=== PATIENT | female | born 1965 | race Caucasian/White ===

== ENCOUNTER 2022-10-16 07:32 | Outpatient (CLI) | payer OTHER, SELFPAY | END 2022-10-16 07:33 | disposition home or self-care (01) | PROVIDERS: PCP Family Medicine; Visit Provider Family Medicine | DX: M54.16 Radiculopathy, lumbar region (principal); M51.36 Other intervertebral disc degeneration, lumbar region | CPT/HCPCS: 64483; J1100; Q9966 ==

== ENCOUNTER 2022-11-20 07:31 | Outpatient (CLI) | payer OTHER, SELFPAY | END 2022-11-20 07:32 | disposition home or self-care (01) | LOC: RAD 07:32 → INJ CL 09:12 | PROVIDERS: PCP Family Medicine; Visit Provider Family Medicine | DX: M54.16 Radiculopathy, lumbar region (principal); M51.36 Other intervertebral disc degeneration, lumbar region | CPT/HCPCS: 64483; J1100; Q9966 ==

== ENCOUNTER 2024-08-28 06:54 | Outpatient (CLI) | payer BC, SELFPAY | END 2024-08-28 06:55 | disposition home or self-care (01) | LOC: INJ CL 06:56 | PROVIDERS: PCP Family Medicine; Visit Provider Family Medicine | DX: M54.16 Radiculopathy, lumbar region (principal); M51.369 Other intervertebral disc degeneration, lumbar region without mention of lumbar back pain or lower extremity pain | CPT/HCPCS: 62323; J0702; Q9966 ==

== ENCOUNTER 2025-01-05 14:29 | Outpatient (CLI) | payer BC, SELFPAY | END 2025-01-05 14:30 | disposition home or self-care (01) | LOC: INJ CL 14:29 | PROVIDERS: PCP Family Medicine; Visit Provider Family Medicine | DX: M17.12 Unilateral primary osteoarthritis, left knee (principal); M25.562 Pain in left knee | CPT/HCPCS: 64454 ==

== ENCOUNTER 2025-05-24 18:09 | Emergency (ER) | payer BC, SELFPAY ==
[2025-05-24] VITALS (9 sets, daily range): BP systolic 74–145; BP diastolic 45–91; PULSE 76–79; RESP 4–35; TEMP 36.6; O2SAT 95–98; BMI 34.3
--- OUTSIDE RECORDS SUMMARY | 2025-05-24 18:12 | XMS_ITS | Clinical Summary ---
Author Organization [facility] Address [address] [place] [id number] Care Team Providers Care Generator Man Name Role Phone Monica Naranjo MD Primary Care Provider Allergies No known active allergies Medications cholecalciferol (VITAMIN D) 2,000 unit capsule Take 1 capsule by mouth once daily. 90 capsule 3 08/14/20 10 Active Evening Maplewood Oil 500 mg capsule Take by mouth. 0 08/14/20 10 Active multivitamin (MVI) tablet Take 1 tablet by mouth once daily. 100 tablet 3 08/14/20 10 Active omega-3 fatty acids-vitamin E (FISH OIL) 1,000 mg Cap Take 2 capsules by mouth once daily. 180 capsule 3 08/14/20 10 Active estradioL (ESTRACE) 0.1 mg/g vaginal creamIndications :Vaginal atrophy Insert 0.5 g into the vagina at bedtime. Use 0.5 gram vaginally two nights per week (,Th) 42.5 g 3 06/08/20 20 Active diclofenac topical (VOLTAREN) 1 % gelIndications:P olyarthralgia Apply 2 g topically to affected area(s) 4 times daily. 1 Tube 2 08/23/20 20 Active Restasis 0.05 % ophthalmic emulsion Place 1 Drop into both eyes 2 times daily. 08/01/20 21 Active Blood-Glucose Meter (Accu-Chek Guide Glucose Meter)Indication s:New onset type 2 diabetes mellitus (HC) Dispense glucose meter, test strips and lancets covered by the patient insurance. Test 2 times per day. 1 Each 03/08/20 22 Active clobetasol 0.05% (TEMOVATE 0.05% OINTMENT) 0.05 % ointmentIndicati ons:Lichen sclerosus of female genitalia Apply topically to affected area(s) 2 times daily. 60 g 04/05/20 22 Active blood sugar diagnostic (Accu-Chek Guide test strips) stripIndications :New onset type 2 diabetes mellitus (HC) USE TO TEST TWICE DAILY 200 Each 3 06/05/20 23 Active lidocaine 4 % topical gelIndications:B RBPR (bright red blood per rectum),Rectal pain Apply topically to affected area(s). 120 g 11/20/19 24 Active lancetsIndicatio ns:New onset type 2 diabetes mellitus (HC) Test 2 times per day. 200 Each 3 06/15/20 24 Active CPAPIndications: TIARRA (obstructive sleep apnea) RESMED CPAP (E0601) machine for home use at pressure: 11cmw, Choice of mask (A7030 or A7034) w/full face cushion (A7031) x1/mo, nasal cushion (A7032) x2/mo, or nasal pillows (A7033) x 2/mo; Length of Need: 99 months; Frequency of use: Daily 1 Each 11 09/14/19 25 Active celecoxib 200 mg capsuleIndicatio ns:Bilateral foot pain,Osteoarthri tis of right ankle and foot,DJD (degenerative joint disease), ankle and foot, left TAKE 1 CAPSULE(200 MG) BY MOUTH TWICE DAILY WITH MEALS 60 Capsule 2 03/03/20 25 Active fluticasone (50 mcg per actuation) nasal solution (FLONASE)Indicat ions:Seasonal allergic rhinitis due to other allergic trigger Inhale 2 Sprays in both nostrils once daily. 48 g 3 03/04/20 25 Active tirzepatide (MOUNJARO) 15 mg/0.5 mL penIndications:T ype 2 diabetes mellitus without complication, without long-term current use of insulin (HC),Class 2 severe obesity with body mass index (BMI) of 35 to 39.9 with serious comorbidity (HC) Inject 15 mg subcutaneous once weekly. 6 mL 1 04/29/20 25 Active rosuvastatin (CRESTOR) 20 mg tabletIndication s:Type 2 diabetes mellitus without complication, without long-term current use of insulin (HC) Take 1 Tablet (20 mg) by mouth at bedtime. 90 Tablet 2 04/29/20 25 Active montelukast (SINGULAIR) 10 mg tabletIndication s:Seasonal allergic rhinitis due to other allergic trigger Take 1 Tablet (10 mg) by mouth at bedtime. 90 Tablet 1 04/29/20 25 Active metFORMIN (GLUCOPHAGE XR) 500 mg Extended-Release tabletIndication s:Type 2 diabetes mellitus without complication, without long-term current use of insulin (HC) Take 1 Tablet (500 mg) by mouth once daily with evening meal. 90 Tablet 2 04/29/20 25 Active gabapentin (NEURONTIN) 300 mg capsuleIndicatio ns:Hot flashes due to menopause TAKE 1 CAPSULE BY MOUTH EVERY MORNING AND 2 CAPSULES BY MOUTH AT BEDTIME 270 Capsule 3 04/29/20 25 Active fluticasone propion-salmeter oL (Wixela Inhub) 250-50 mcg/Dose diskus inhalerIndicatio ns:Mild intermittent asthma without complication (HC) Inhale 1 Puff by mouth two times daily. 180 Each 2 04/29/20 25 Active cyanocobalamin (Vitamin B-12) 1,000 mcg tabletIndication s:Type 2 diabetes mellitus without complication, without long-term current use of insulin (HC) Take 1 Tablet (1,000 mcg) by mouth once daily. 90 Tablet 3 04/29/20 25 Active aspirin enteric coated 81 mg tabletIndication s:Type 2 diabetes mellitus without complication, without long-term current use of insulin (HC) Take 1 Tablet (81 mg) by mouth once daily with a meal. 90 Tablet 2 04/29/20 25 Active albuterol HFA (PRO-AIR; VENTOLIN; PROVENTIL) 90 mcg/actuation inhalerIndicatio ns:Wheezing Inhale 1-2 Puffs by mouth every 4 hours if needed for Wheezing. 2 Each 3 04/29/20 25 Active albuterol HFA (PRO-AIR; VENTOLIN; PROVENTIL) 90 mcg/actuation inhalerIndicatio ns:Wheezing Inhale 1-2 Puffs by mouth every 4 hours if needed for Wheezing. 2 Each 3 03/07/20 23 025 Discontin ued(Reord er (E-cancel not sent)) metFORMIN (GLUCOPHAGE XR) 500 mg Extended-Release tabletIndication s:Type 2 diabetes mellitus without complication, without long-term current use of insulin (HC) Take 1 Tablet (500 mg) by mouth once daily with evening meal. 90 Tablet 2 10/28/19 25 025 Discontin ued(Reord er (E-cancel not sent)) rosuvastatin (CRESTOR) 20 mg tabletIndication s:Type 2 diabetes mellitus without complication, without long-term current use of insulin (HC) Take 1 Tablet (20 mg) by mouth at bedtime. 90 Tablet 2 10/28/19 25 025 Discontin ued(Reord er (E-cancel not sent)) montelukast (SINGULAIR) 10 mg tabletIndication s:Seasonal allergic rhinitis due to other allergic trigger Take 1 Tablet (10 mg) by mouth at bedtime. 90 Tablet 1 10/28/19 25 025 Discontin ued(Reord er (E-cancel not sent)) fluticasone propion-salmeter oL (Wixela Inhub) 250-50 mcg/Dose diskus inhalerIndicatio ns:Mild intermittent asthma without complication (HC) Inhale 1 Puff by mouth two times daily. 180 Each 2 10/28/19 25 025 Discontin ued(Reord er (E-cancel not sent)) aspirin (ECOTRIN) 81 mg enteric coated tabletIndication s:Type 2 diabetes mellitus without complication, without long-term current use of insulin (HC) Take 1 Tablet (81 mg) by mouth once daily with a meal. 90 Tablet 2 10/28/19 25 025 Discontin ued(Reord er (E-cancel not sent)) gabapentin (NEURONTIN) 300 mg capsuleIndicatio ns:Hot flashes due to menopause TAKE 1 CAPSULE BY MOUTH EVERY MORNING AND 2 CAPSULES BY MOUTH AT BEDTIME 270 Capsule 3 10/28/19 25 025 Discontin ued(Reord er (E-cancel not sent)) cyanocobalamin (Vitamin B-12) 1,000 mcg tabletIndication s:Type 2 diabetes mellitus without complication, without long-term current use of insulin (HC) Take 1 Tablet (1,000 mcg) by mouth once daily. 90 Tablet 3 10/28/19 25 025 Discontin ued(Reord er (E-cancel not sent)) tirzepatide (MOUNJARO) 15 mg/0.5 mL penIndications:T ype 2 diabetes mellitus without complication, without long-term current use of insulin (HC),Class 2 severe obesity with body mass index (BMI) of 35 to 39.9 with serious comorbidity (HC) Inject 15 mg subcutaneous once weekly. 6 mL 1 10/28/19 25 025 Discontin ued(Reord er (E-cancel not sent)) Active Problems Problem Noted Date Diagnosed Date Class 2 severe obesity with body mass index (BMI) of 35 to 39.9 with serious comorbidity 10/28/2024 Type 2 diabetes mellitus wit hout complication, without long-term current use of insulin 10/28/2024 Hot flashes due to menopause 10/28/2024 Acute pain of left knee 07/29/2024 Overview (09/23/2024): 2019 Left knee meniscal arthroscopic Surgery. July 2024: Cortisone injection to left knee, no lasting benefit. Lichen sclerosus of female genitalia 07/11/2020 Arthritis of left hip 08/01/2018 Overview (08/01/2018): July 2018: Left hip cortisone injection by ultrasound guidance. Chronic midline low back pain with left-sided sc iatica 06/26/2018 Overview (09/23/2024): ~ June 2018: L4-L5 Left IL epidural steroid injection by Dr. Tovar. ~ Jul 2018: Left hip intraarticular hip steroid injection. ~ August 2018: Left S1 TF epidural steroid injection by Dr. Tovar. ~ August 2024: L4-L5 epidural steroid injection by Dr. Tovar, no lasting benefit. Adenomatous colon polyp 05/06/2018 Overview (02/20/2024): Colonoscopy 04/2018 polyp, repeat in 5 years Colonoscopy 08/2020 hyperplastic colon polyp, repeat in 5 years Colonoscopy 02/2024 hemorrhoids, repeat in 5 years BEACH (dyspnea on exertion) 04/05/2017 Obesity 04/05/2017 TIARRA (obstructive sleep apnea) 02/18/2017 Mild intermittent asthma 08/14/2010 Vitamin D deficiency 08/14/2010 Unifocal PVCs 08/17/2008 Resolved Problems Problem Noted Date Diagnosed Date Resolved Date Arrhythmia 08/14/2010 10/01/2018 Sleep apnea 08/17/2008 10/01/2018 Unspecified sinusitis (chronic) 10/10/2007 01/01/2011 Overview (10/10/2007): Chronic Encounters Date Type Department Care Team Description 05/21/2025 8:00 AM CDT Ancillary Procedure [facility] [address] [facility] [address] Arrived 05/21/2025 7:15 AM CDT Ancillary Procedure [facility] [address] [facility] [place] [address] Arrived 05/21/2025 Travel 05/04/2025 Orders Only [address] [address] Monica Naranjo MD 1 scan: (1-Ord) NFLD-EKG-04/29/25 04/30/2025 8:00 AM CDT Ancillary Procedure [address] [address] 04/29/2025 8:20 AM CDT Office Visit [address] [address] Monica Naranjo MD Diabetes 04/29/2025 Travel 03/03/[address] [address] Monica Naranjo MD Refill Request; FLUTICASONE 03/03/[address] [address] Jonathan Clark, DPM Refill Request (Celecoxib) from Last 3 Months Immunizations Immunization Administration Dates Next Due AMB Influenza, IIV3 (Age >=3 years)(Flu Clinic Only) 08/18/2008 COVID-19 VACCINE SPIKEVAX (M ODERNA 50MCG/0.5ML) 12YO+ PFS 10/28/2024,09/25/2023 COVID-19 vaccine (Pfizer-Bio NTech 30mcg/0.3mL) 12YO+ BIVALENT PF, MDV 06/07/2022 Hepatitis B (Adult) 09/25/2023,06/07/2022,2021 INFLUENZA, IIV3 PF (AGE >= 6 MO) 05/21/2024 Influenza A (H1N1), Inactiva karlene (Age >=3 Years) 07/22/2009 Influenza Virus, Unspecified 08/18/2008, 07/19/2006,07/26/2005,06/16,08/18/2003 Influenza, IIV3 (Age >=3 years) 08/18/20 08,07/19/2006,07/26/2005,06/16,08/18/2003 Influenza, IIV4 09/25/2023,,06/16/2021,06/08,08/28/2018 Pneumococcal Conj 20-valent (Prevnar 20) 03/08/2022 Tdap 10/08/2018 Zoster (Shingrix-RZV, recombinant) 06/07/2022,05/03/2022 Family History Medical History Relation Name Comments Asthma Brother 1 Asthma Brother 2 Heart Disease Brother 3 atrial fibrill ation at age 48 Alcohol/Drug Father recovering alco holic Cancer Father melanoma Heart block Father 2 stents placed Psychiatric illness Father depressi on Cancer-breast Maternal Aunt Osteoporosis Maternal Grandmother Cancer-breast Mother Cancer-ovarian Mother Heart Disease Mother atrial fibrill ation Skin cancer Mother Uterine cancer Mother Cancer-colon No Family History Cancer-prostate No Family History Relation Name Status Comments Brother 1 Brother 2 Brother 3 Father Maternal Aunt Maternal Grandmother Mother Social History Tobacco Use Types Packs/Day Years Used Date Smoking Tobacco: Never Smokeless Tobacco: Never Tobacco Cessation:Counseling Given: Yes Alcohol Use Standard Drinks/Week Comments Yes 0 (1 standard drink = 0.6 oz pur e alcohol) Occasional PHQ-2 Answer Date Recorded PHQ-2 TOTAL SCORE 0 03/08/2022 Social Connections Answer Date Recorded Do you often feel lonely or isolated from those around you? 0 02/19/2025 Financial Resource Strain Answer Date R ecorded Difficulty of Paying Living Expenses 3 02/19/2025 Difficulty of Paying Living Expenses Not on file 02/19/2025 Food Insecurity Answer Date Recorded Do you worry your food will run out before you are able to buy more? 1 02/19/2025 Transportation Needs Answer Date Record ed Does lack of transportation keep you from medica l appointments? 1 02/19/2025 Does lack of transportation keep you from work, meetings or getting things that you need? 1 02/19/2025 Housing Stability Answer Date Recorded What is your housing situation today? 1 02/19/2025 Utilities Answer Date Recorded Do you have trouble paying f or utilities (for example, heat, electricity, water, phone)? 1 02/19/2025 Comments No Sex and Gender Information Value Date Recorded Sex Assigned at Not on file Legal Sex Female 5:51 AM M[employer]TER SOUS[employer]ES Gender Identity Not on file Sexual Orientation Not on file Occupation Industry Job Start Date Job End Date Not on file Not on file Not on file Not on file Obstetrics History Para Term AB IAB SAB Ectopic Multiple Livin g Live Births 4 4 4 0 0 0 0 0 0 4 4 Date Outcome GA Total Labor Labor/2nd/3rd Weight Sex Type Anes PTL Michelle A1 A5 Name Clin Term 3.6 kg (7 lb 15 oz) Vag Livin g Comments:No issues Term 3.15 kg (6 lb 15 oz) C-Sect ion Livin g Comments:Placenta prev ia. Term 4.34 kg (9 lb 9 oz) F Induce d Livin g Comments:No issues Term 2.89 kg (6 lb 6 oz) C-Sect ion Livin g Comments:No issues Last Filed Vital Signs Vital Sign Reading Time Taken Comments Blood Pressure 114/73 04/29/2025 8:28 AM CDT Pulse 73 04/29/2025 8:28 AM CDT Temperature 36.8 C (98.2 F) 02/19/2025 11:45 AM CDT Respiratory Rate 14 02/20/2024 10:40 AM CDT Oxygen Saturation 96% 04/29/2025 8:28 AM CDT Inhaled Oxygen Concentration - - Weight 98.4 kg (217 lb) 04/29/2025 8:28 AM CDT Height 161.1 cm (5' 3.43) 09/11/2024 8:00 AM CS T Body Mass Index 37.92 09/11/2024 8:00 AM MOUNTER SOUSAPHONES Plan of Treatment Upcoming Encounters Date Type Department Care Team (Late st Contact Info) Description 05/27/2025 8:30 AM CDT Ancillary Procedure [facility] [address] [place] [address] 06/03/2025 7:30 AM CDT Office Visit [facility] [address] [place] [address] Monica Naranjo MD [address] [place] [address] 11/02/2025 7:30 AM MOUNTER SOUSAPHONES Office Visit [facility] [address] [place] [address] Monica Naranjo MD [address] [place] [address] Health Maintenance Due Date Last Done Comments HIV for age 15-65 1979 Depression screening for age 12+ 03/09/2023 03/09/2022, 03/08/2022, 03/08/2022, Additional history exists RSV vaccine for adults or (1 - Risk 60-74 years 1-dose series) 2024 Influenza Vaccine (#1) 2025 4, 09/25/2023, 06/07/2022, Additional history exists Pap test for age 21-65 06/08/2025 0, 06/08/2020, 02/18/2017, Additional history exists BMI (ht and wt on same day) for age 18+ 09/11/2025 09/11/2024, 09/25/2023, 2022, Additional history exists Mammogram for age 45-75 05/21/2026 05/21/20 25, 04/22/2024, 03/19/2023, Additional history exists Tetanus booster 10/08/2028 10/08/2018 Colonoscopy through age 75 02/19/202902/19, 02/20/2024, 02/20/2024, Additional history exists Lipids for age 45-75 04/29/2030 04/29/2025, 07/22/2024, 09/25/2023, Additional history exists Hepatitis C screening for ag e 18-79 Completed 03/31/2018 Pneumococcal series for age 50+ Completed 2 Zoster (shingles) series for age 50+ Completed 06/07/2022, 03/08/2022 Hepatitis B series for 19+ Completed 09/25, 06/07/2022, 04/05/2022 COVID-19 vaccine series Completed 10/28/19, 09/25/2023, 06/07/2022, Additional history exists Procedures Procedure Name Priority Date/Time Associated Diagnosis Comments XR MAMMO CHAPARRITA BILAT SCREEN Routine 05/21/2025 8:12 AM CDT Visit for screening mammogram MR SHOULDER LEFT WO Routine 05/21/2025 7 :50 AM CDT Chronic left shoulder pain EKG 12 LEAD Routine 05/04/2025 8:39 AM CDT BEACH (dyspnea on exertion) Diaphoresis IN READING EKG - NO CHARGE, COMP ONLY Routine 05/04/2025 8:38 AM CDT BEACH (dyspnea on exertion) Diaphoresis XR SHOULDER 3 VIEWS LEFT Routine 04/30/2025 7:56 AM CDT Chronic left shoulder pain LIPID PANEL W REFLEX MEASURED LDL Routine 04/29/2025 8:21 AM CDT Type 2 diabetes mellitus without complication, without long-term current use of insulin (HC) COMP METABOLIC PANEL Routine 04/29/2025 8:21 AM CDT Type 2 diabetes mellitus without complication, without long-term current use of insulin (HC) HEMOGLOBIN A1C MONITORING (POCT) Routine 04/29/2025 8:21 AM CDT Type 2 diabetes mellitus without complication, without long-term current use of insulin (HC) COLONOSCOPY DIAGNOSTIC Routine 02/20/2024 9:07 AM CDT Hematochezia LOSS PREVENTION LEADER THIN PREP PAP SCREEN IMAGED Routine 06/08/2020 2:30 PM CDT Screening for malignant neoplasm of cervix ANTI HCV Routine 03/31/2018 2:54 PM CDT Need for hepatitis C screening test from Last 3 Months or Most Recently Relevant to Health Maintenance Results * XR MAMMO CHAPARRITA BILAT SCREEN (05/21/2025 8:12 AM CDT) Anatomical Region Laterality Modality BREASTS, Breast Left, Breast Right Bilateral Mammography Impressions 05/22/2025 5:09 AM CDT There is no radiographic evidence for malignancy. Recommend annual mammograms. MAMMOGRAM ASSESSMENT: ACR 1 Negative PATIENTS: You will also receive a letter with your examination results in an easy to read format. If you have questions about your results, please contact your referring provider. Narrative 05/22/2025 5:09 AM CDT For Patients: As a result of the Century Cures Act, medical imaging exams and procedure reports are released immediately into your electronic medical record. You may view this report before your referring provider. If you have questions, please contact your health care provider. XR MAMMO CHAPARRITA BILAT SCREEN [[id number]] CLINICAL HISTORY: This is an asymptomatic 59 y.o. patient. INDICATION FOR EXAM: Mammogram Screening. TECHNIQUE: CC and MLO views were obtained. This study was evaluated with the assistance of Computer-Aided Detection. Breast Tomosynthesis was used in interpretation. COMPARISON FILM: Yes 04/22/24 [employer] 03/19/23 [employer] FINDINGS: There are scattered areas of fibroglandular density. There are no dominant masses, suspicious micro calcifications or areas of architectural distortion. us Monica Naranjo MD MAMMO Final Resul t * MR SHOULDER LEFT WO (05/21/2025 7:50 AM CDT) Anatomical Region Laterality Modality SHOULDER L Magnetic Resonan ce 05/21/2025 2:04 PM CDT Impressions 05/21/2025 2:04 PM CDT 1. Prominent biceps tenosynovitis. 2. Associated small effusion with synovitis glenohumeral joint. Degenerative chondromalacia and mild secondary degenerative changes. 3. Upper normal width of the AC joint may be remote grade 1 separation. 4. Tendinosis without significant tearing rotator cuff tendons. Dictated by Brad Lutz MD @ 05/21/2025 2:04:46 PM (Electronically Signed) Narrative 05/21/2025 2:04 PM CDT For Patients: As a result of the Century Cures Act, medical imaging exams and procedure reports are released immediately into your electronic medical record. You may view this report before your referring provider. If you have questions, please contact your health care provider. EXAM: MRI OF THE LEFT SHOULDER, WITHOUT CONTRAST CLINICAL INDICATION: Chronic shoulder pain. PRIOR SURGERY: None reported. COMPARISON PLAIN FILMS: 30 April 2025. COMPARISON CROSS-SECTIONAL IMAGING STUDIES: None available at time of interpretation. TECHNICAL: Axial, sagittal oblique and coronal oblique T1, PD, PD FS and T2-weighted images. FINDINGS: GLENOHUMERAL JOINT: Effusion/Cyst: Small effusion. Some synovitis axillary recess. No erosion. No paralabral or periarticular cyst or ganglion. Humeral Head Articular Cartilage: Diffuse high-grade 2 thinning. Small inferior osteophytes. Glenoid Articular Cartilage: Diffuse high-grade 2 thinning. Small marginal osteophytes. Loose Bodies: No appreciable loose bodies. Capsule: No convincing evidence of adhesive capsulitis or capsular injury. OSSEOUS STRUCTURES: No fracture, marrow edema or marrow replacement process. CORACOACROMIAL ARCH: Acromial Morphology: Type 2 acromial morphology. No abnormal lateral or anterior downward sloping of the acromion. No os acromiale. No significant subacromial spur. Lateral acromial thickness is 6 mm. Acromiohumeral Interval: The acromiohumeral interval is adequately patent. At its narrowest, the interval measures 7 mm. No abnormal thickening of the coracoacromial ligament. Coracohumeral Interval: The coracohumeral interval is normal. At its narrowest, the coracohumeral interval measures greater than 10 mm. Coracoid index is less than 10 mm. ACROMIOCLAVICULAR JOINT REGION: AC Joint: Upper normal width with trace effusion and edematous capsule. Ligaments: The coracoclavicular ligaments are intact. BURSAE: Subacromial-Subdeltoid: Thin line of edema and scant fluid perhaps with some synovitis under the joint and acromion. Subcoracoid: No abnormal bursal edema, thickening or bursal fluid. ROTATOR CUFF TENDONS AND MUSCLES AND DELTOID: Supraspinatus: Heterogeneous intermediate signal and expansion distal tendon. Small interstitial tear or tiny bursal tear mid foot plate. No high-grade partial or full-thickness tear. No atrophy or edema in the muscle. Infraspinatus: Patchy intermediate signal tendinosis with mild expansion distal tendon. Intact foot plate. No atrophy or edema in the muscle. Teres Minor: No tendinosis, tendon tearing, muscle atrophy or muscle edema. Subscapularis: Hazy and patchy tendinosis without significant tearing. No atrophy or edema in the muscle. Deltoid: No muscle atrophy or edema. BICEPS TENDON, LONG HEAD: Extensive fluid and synovitis in the tendon sheath which is moderately distended. Tendon has normal caliber and signal. No subluxation. The biceps vineet mechanism is intact. The biceps anchor appears grossly intact. GLENOID LABRUM: Within the limitations of non-arthrographic technique, the superior labrum and biceps-labral complex are intact. The anteroinferior labrum is intact without Bankart or Bankart-variant labral tear. The remainder of the labrum is similarly intact. OTHER FINDINGS: There is no abnormality within the suprascapular or spinoglenoid notches nor within the quadrilateral space. No axillary adenopathy or mass. Procedure Note Brad Lutz MD - 05/21/2025 For Patients: As a result of the 21st Century Cures Act, medical imagingexams and procedure reports are released immediately into your electronicmedical record. You may view this report before your referring provider.If you have questions, please contact your health care provider. EXAM: MRI OF THE LEFT SHOULDER, WITHOUT CONTRAST CLINICAL INDICATION: Chronic shoulder pain. PRIOR SURGERY: None reported. COMPARISON PLAIN FILMS: 30 April 2025. COMPARISON CROSS-SECTIONAL IMAGING STUDIES: None available at time of interpretation. TECHNICAL: Axial, sagittal oblique and coronal oblique T1, PD, PD FS and T2-weightedimages. FINDINGS: GLENOHUMERAL JOINT: Effusion/Cyst: Small effusion. Some synovitis axillary recess. No erosion.No paralabral or periarticular cyst or ganglion. Humeral Head Articular Cartilage: Diffuse high-grade 2 thinning. Smallinferior osteophytes. Glenoid Articular Cartilage: Diffuse high-grade 2 thinning. Small marginalosteophytes. Loose Bodies: No appreciable loose bodies. Capsule: No convincing evidence of adhesive capsulitis or capsular injury. OSSEOUS STRUCTURES: No fracture, marrow edema or marrow replacement process. CORACOACROMIAL ARCH: Acromial Morphology: Type 2 acromial morphology. No abnormal lateral oranterior downward sloping of the acromion. No os acromiale. Nosignificant subacromial spur. Lateral acromial thickness is 6 mm. Acromiohumeral Interval: The acromiohumeral interval is adequately patent.At its narrowest, the interval measures 7 mm. No abnormal thickening ofthe coracoacromial ligament. Coracohumeral Interval: The coracohumeral interval is normal. At itsnarrowest, the coracohumeral interval measures greater than 10 mm.Coracoid index is less than 10 mm. ACROMIOCLAVICULAR JOINT REGION: AC Joint: Upper normal width with trace effusion and edematous capsule. Ligaments: The coracoclavicular ligaments are intact. BURSAE: Subacromial-Subdeltoid: Thin line of edema and scant fluid perhaps withsome synovitis under the joint and acromion. Subcoracoid: No abnormal bursal edema, thickening or bursal fluid. ROTATOR CUFF TENDONS AND MUSCLES AND DELTOID: Supraspinatus: Heterogeneous intermediate signal and expansion distaltendon. Small interstitial tear or tiny bursal tear mid foot plate. Nohigh-grade partial or full-thickness tear. No atrophy or edema in themuscle. Infraspinatus: Patchy intermediate signal tendinosis with mild expansiondistal tendon. Intact foot plate. No atrophy or edema in the muscle. Teres Minor: No tendinosis, tendon tearing, muscle atrophy or muscleedema. Subscapularis: Hazy and patchy tendinosis without significant tearing. Noatrophy or edema in the muscle. Deltoid: No muscle atrophy or edema. BICEPS TENDON, LONG HEAD: Extensive fluid and synovitis in the tendon sheath which is moderatelydistended. Tendon has normal caliber and signal. No subluxation. Thebiceps vineet mechanism is intact. The biceps anchor appears grosslyintact. GLENOID LABRUM: Within the limitations of non-arthrographic technique, the superior labrumand biceps-labral complex are intact. The anteroinferior labrum is intactwithout Bankart or Bankart-variant labral tear. The remainder of thelabrum is similarly intact. OTHER FINDINGS: There is no abnormality within the suprascapular or spinoglenoid notchesnor within the quadrilateral space. No axillary adenopathy or mass. IMPRESSION: 1. Prominent biceps tenosynovitis. 2. Associated small effusion with synovitis glenohumeral joint.Degenerative chondromalacia and mild secondary degenerative changes. 3. Upper normal width of the AC joint may be remote grade 1 separation. 4. Tendinosis without significant tearing rotator cuff tendons. Dictated by Brad Lutz MD @ 05/21/2025 2:04:46 PM (Electronically Signed) Monica Naranjo MD MR Final Resul t * EKG 12 LEAD (05/04/2025 8:39 AM CDT) Monica Naranjo MD EKG ORD Final Resul t * IN READING EKG - NO CHARGE, COMP ONLY (05/04/2025 8:38 AM CDT) Moncia Naranjo MD PB - PROVIDER READINGS Trista l Result * XR SHOULDER 3 VIEWS LEFT (04/30/2025 7:56 AM CDT) Anatomical Region Laterality Modality SHOULDERS, SHOULDER L Computed R adiography 05/02/2025 7:30 AM CDT Impressions 05/02/2025 7:30 AM CDT Mild glenohumeral joint osteoarthritis Dictated by Levi Arredondo MD @ 05/02/2025 7:30:13 AM (Electronically Signed) Narrative 05/02/2025 7:30 AM CDT For Patients: As a result of the Cures Act, medical imaging exams and procedure reports are released immediately into your electronic medical record. You may view this report before your referring provider. If you have questions, please contact your health care provider. INDICATION: Chronic left shoulder pain TECHNIQUE: Three views of the left shoulder COMPARISON: None FINDINGS: Mild glenohumeral joint osteoarthritis. AC joint unremarkable. No erosive change or abnormal soft tissue calcification. Procedure Note Levi Arredondo MD - 05/02/2025 For Patients: As a result of the Cures Act, medical imagingexams and procedure reports are released immediately into your electronicmedical record. You may view this report before your referring provider.If you have questions, please contact your health care provider. INDICATION: Chronic left shoulder pain TECHNIQUE: Three views of the left shoulder COMPARISON: None FINDINGS: Mild glenohumeral joint osteoarthritis. AC joint unremarkable. No erosivechange or abnormal soft tissue calcification. IMPRESSION: Mild glenohumeral joint osteoarthritis Dictated by Levi Arredondo MD @ 05/02/2025 7:30:13 AM (Electronically Signed) us Monica Naranjo MD GENERAL IMAGING Final Resul t * LIPID PANEL W REFLEX MEASURED LDL (04/29/2025 8:21 AM CDT) CHOLESTEROL, TOTAL 105 <200 mg/dL 04/30/2025 4:09 AM CDT [facility] TRIGLYCERIDES 122 <150 mg/dL 04/30/2025 4:09 AM CDT [facility] HDL CHOLESTEROL 56 > OR = 50 mg/dL 04/30/2025 4:09 AM CDT [facility] NON HDL CHOLESTEROL 49 <130 mg/dL (calc) 04/30/2025 4:09 AM CDT [facility] Comment: For patients with diabetes plus 1 major ASCVD risk factor, treating to a non-HDL-C goal of <100 mg/dL (LDL-C of <70 mg/dL) is considered a therapeutic option. CHOL/HDLC RATIO 1.9 <5.0 (calc) 04/30/2025 4:09 AM CDT [facility] LDL-CHOLESTEROL 29 mg/dL (calc) 04/30/2025 4:09 AM CDT [facility] Comment: Reference range: <100 Desirable range <100 mg/dL for primary prevention; <70 mg/dL for patients with CHD or diabetic patients with > or = 2 CHD risk factors. LDL-C is now calculated using the Jame calculation, which is a validated novel method providing better accuracy than the Friedewald equation in the estimation of LDL-C. Nahum ALMENDAREZ et al. GILDA. 2013;310(19): 9547-4687 (http://education.Vuzit/faq/IBC960) Blood BLOOD SPECIMEN / Unknown [facility] / Unknown 04/29/2025 8:21 AM CDT 04/29/2025 8:21 AM CDT Monica Naranjo MD CHEMISTRY Final Resul t Performing Organization Address [facility] de Phone Number [facility] [address] [address], [place] [phone] * POCT Hemoglobin A1C Monitoring (04/29/2025 8:21 AM CDT) [facility] POC HEMOGLOBIN A1C 5.3 <6.0 % OF TOTAL HGB 04/29/2025 9:06 AM CDT [facility] Comment: Any point of care results exhibiting inconsistency with the patient's clinical status should be repeated using a different testing method. Blood BLOOD SPECIMEN / Unknown [facility] / Unknown 04/29/2025 8:21 AM CDT 04/29/2025 8:21 AM CDT Monica Naranjo MD CHEMISTRY Final Resul t Performing Organization Address [facility] Co de Phone Number [facility] [address] [address], [place] [phone] [facility] [address] [place] [address], [place] [phone] * COMP METABOLIC PANEL (04/29/2025 8:21 AM CDT) SODIUM 141 135 - 146 mmol/L 04/30/2025 4:09 AM CDT [facility] POTASSIUM 4.5 3.5 - 5.3 mmol/L 04/30/2025 4:09 AM CDT [facility] CHLORIDE 107 98 - 110 mmol/L 04/30/2025 4:09 AM CDT [facility] CARBON DIOXIDE 25 20 - 32 mmol/L 04/30/2025 4:09 AM CDT [facility] GLUCOSE 93 65 - 99 mg/dL 04/30/2025 4:09 AM CDT [facility] Comment: Fasting reference interval CALCIUM 9.1 8.6 - 10.4 mg/dL 04/30/2025 4:09 AM CDT [facility] CREATININE 0.70 0.50 - 1.05 mg/dL 04/30/2025 4:09 AM CDT [facility] BUN/CREATININE RATIO SEE NOTE: (calc) 04/30/2025 4:09 AM CDT [facility] Comment: Not Reported: BUN and Creatinine are within reference range. EGFR 99 > OR = 60 mL/min/1. 73m2 04/30/2025 4:09 AM CDT [facility] ALBUMIN 4.2 3.6 - 5.1 g/dL 04/30/2025 4:09 AM CDT [facility] PROTEIN, TOTAL 6.6 6.1 - 8.1 g/dL 04/30/2025 4:09 AM CDT [facility] BILIRUBIN, TOTAL 0.4 0.2 - 1.2 mg/dL 04/30/2025 4:09 AM CDT [facility] ALKALINE PHOSPHATASE 37 37 - 153 U/L 04/30/2025 4:09 AM CDT [facility] ALT 28 6 - 29 U/L 04/30/2025 4:09 AM CDT [facility] AST 30 10 - 35 U/L 04/30/2025 4:09 AM CDT [facility] UREA NITROGEN (BUN) 13 7 - 25 mg/dL 04/30/2025 4:09 AM CDT [facility] GLOBULIN 2.4 1.9 - 3.7 g/dL (calc) 04/30/2025 4:09 AM CDT [facility] ALBUMIN/GLOBULI N RATIO 1.8 1.0 - 2.5 (calc) 04/30/2025 4:09 AM CDT [facility] Blood BLOOD SPECIMEN / Unknown [facility] / Unknown 04/29/2025 8:21 AM CDT 04/29/2025 8:21 AM CDT us Monica Naranjo MD CHEMISTRY Final Resul t [facility] [address] [place] [address], * COLONOSCOPY (02/20/2024 9:51 AM CDT) 02/20/2024 9:51 AM CDT Narrative Transcriptions Nahum Solis MD - 02/20/2024 10:34 AM CDT Patient Name: Louann Lofton Procedure Date: 02/20/2024 Gender: Female Date of : 1965 Admit Type: Outpatient Procedure: Colonoscopy Proceduralist: Nahum Solis MD , Jeane Avina (Nurse), Aaliyah Morrison (Nurse) Referring MD: Monica Naranjo Indications/Pre-Op Diagnosis: Evaluation of unexplained GI bleeding presenting with Hematochezia, History ofcolon polyps Medications: Fentanyl 100 micrograms IV, Midazolam 2 mgIV, The level of sedation administered wasmoderate Procedure Description: The patient had risks, benefits and alternatives explained to andgave informed consent. The patient had a stable cardiopulmonary status and judged an adequate candidate for conscious sedation. The endoscope [id number] was passed through the anus andadvanced to the cecum, identified by appendiceal orifice and ileocecal valve.The colonoscopy was performed without difficulty. The patient toleratedthe procedure well. The quality of the bowel preparation was good. The ileocecal valve, appendiceal orifice, and rectum were photographed. Complications: No immediate complications. Estimated Blood Loss & Specimen: Estimated blood loss: none. Specimen collected - None Findings: Skin tags were found on perianal exam. Scattered small-mouthed diverticula were found in the sigmoidcolon. The entire examined colon appeared normal. Internal hemorrhoids were found during retroflexion. The hemorrhoids were mild. The exam was otherwise without abnormality. Impressions/Post-Op Diagnosis: - Perianal skin tags found on perianal exam. - Diverticulosis in the sigmoid colon. - The entire examined colon is normal. - Internal hemorrhoids. - The examination was otherwise normal. - No specimens collected. Recommendation: - Patient has a contact number available for emergencies. The signsand symptoms of potential delayed complications were discussed with the patient. Return to normal activities tomorrow. Written discharge instructions were provided to the patient. - Resume previous diet. - Continue present medications. - Repeat colonoscopy in 5 years for surveillance. - Use original regular Metamucil one tablespoon PO daily for 1year. Moderate Sedation: A time out was performed before the procedure. Moderate (conscious) sedation was administered by the endoscopy nurse and supervised bythe endoscopist. The following parameters were monitored: oxygensaturation, heart rate, blood pressure, EKG, CO2, respiratory rate, adequacy of pulmonary ventilation and reponse to care. Please refer to the patient's medical record flowsheets and nursing notes for moderate sedation details. Total physician intraservice time was 15 minutes. Nahum Solis MD 02/20/2024 10:34:01 AM This report has been signed electronically. Note Initiated On: 02/20/2024 9:51 AM Procedure Code(s): --- Professional --- 44551, Colonoscopy, flexible; diagnostic, including collection of specimen(s) bybrushing or washing, when performed (separateprocedure) Diagnosis Code(s): --- Professional --- Z86.010, Personal history of colonicpolyps K64.8, Other hemorrhoids K64.4, Residual hemorrhoidal skin tags K92.1, Melena (includes Hematochezia) K57.30, Diverticulosis of large intestine without perforation or abscess withoutbleeding CPT copyright 2022 [employer]. All rights reserved. The codes documented in this report are preliminary and upon auditing coder reviewmay be revised to meet current compliance requirements. Scope In: 10:06:22 AM Scope Withdrawal Time 0 hours 7 minutes 1 second Scope Out: 10:19:03 AM us Nahum Solis MD PROCEDURE ORD Final Res ult * LOSS PREVENTION LEADER THIN PREP PAP SCREEN IMAGED [[id number]] (06/08/2020 2:30 PM CDT) Case Report Gynecologic Cytology Report Case: [id number] Authorizing Provider: Monica Naranjo MD Collected: 06/08/2020 1430 Ordering Location: [facility] Received: 06/08/2020 1510 Clinic First Screen: Ale Ceja Specimen: LOSS PREVENTION LEADER ThinPrep Vial Screening, Cervical 06/21/2020 8:22 AM CDT [facility] INTERPRETATION/ RESULT NEGATIVE FOR INTRAEPITHELIAL LESION OR MALIGNANCY (NIL) (none) 06/21/2020 8:22 AM CDT [facility] at 0822 CDT SPECIMEN ADEQUACY Satisfactory for evaluation Endocervical component present 06/21/2020 8:22 AM CDT [facility] HPV REQUEST HPV and PAP 06/21/2020 8:22 AM CDT [facility] Date of LMP postmenopausal 0 8:22 AM CDT [facility] Last Pap Date 02/18/17 06/21/2020 8:22 AM CDT [facility] Last Pap Result NIL 0 8:22 AM CDT [facility] Abnormal Pap or Lagrange Bx in last 5 years No 06/21/2020 8:22 AM CDT [facility] Menstrual Status Postmenopausal 06/21/2020 8:22 AM CDT [facility] Lagrange Bx Done Today No 06/21/2020 8:22 AM CDT [facility] Additional Information None given 06/21/2020 8:22 AM CDT [facility] Comment: Cytology is screened at [facility] - [address], [place] [address] and [facility] - [address], [place] [address] and [facility] - [address] [place] [address] Interpreted at [facility] - [address], [place] [address] Automated Review Successful 06/21/2020 8:22 AM CDT [facility] Comment:Specimen processed s uccessfully by automated supervisor poultry hatchery device, ThinPrep Imaging System, [employer] ANCILLARY TESTING LOSS PREVENTION LEADER HPV Ordered, Please see separate report 06/21/2020 8:22 AM T [facility] Note The pap test is a screening technique, not a diagnostic procedure. It is used primarily to screen for squamous cancers and precursor lesions. Published studies have shown that it is subject to both false negative and false positive results. The pap test should not be used as the sole means to diagnose or exclude pre-malignant and malignant lesions. 06/21/2020 8:22 AM CDT [facility] Other (Cervical) Non-Blood / Unknown 06/08/2020 2:30 PM CDT 06/08/2020 3:10 PM CDT us Monica Naranjo MD PATHOLOGY/CYTOLOGY Final Re sult [facility] [address] [place] [address], [place] * ANTI HCV [[id number]] (03/31/2018 2:54 PM CDT) HEPATITIS C ANTIBODY Non-React ceci Non-React ceci 03/31/2018 8:54 PM CDT [facility] Comment:Antibodies to HCV no t detected; does not exclude the possibility of exposure to HCV. Blood BLOOD SPECIMEN / Unknown Venipuncture / Unknown 03/31/2018 2:54 PM CDT 03/31/2018 2:54 PM CDT us [facility] SEND OUTS Final R esult [facility] [address] [place] [address], [place] from Last 3 Months or Most Recently Relevant to Health Maintenance Insurance [employer] Advance Directives * Full Code (Latest Code Status on File) Date Activated Date Inactivated Comments 04/05/2017 12:21 PM 04/05/2017 9:15 PM Care Teams Generator Man Relationship Specialty Start Date End Date Monica Naranjo MD [address] [place] [address] PCP - General Family Practice 10/08/18
--- OUTSIDE RECORDS SUMMARY | 2025-05-24 18:12 | XMS_ITS | CCD ---
Author Name Interface, [email or web address] lity Address [address] [place] [address] Oncology Address [address] [place] [id number] Reason for Visit Social History Date Name Value 05/08/2025 Sex Female
[2025-05-24 19:02] LABS: Troponin, Point-of-Care* 0.00 ng/ml (0.01-0.04)
--- NOTE | 2025-05-24 19:03 | CRLHL7_ITS ---
For Patients: As a result of the Century Cures Act, medical imaging exams and procedure reports are released immediately into your electronic medical record. You may view this report before your referring provider. If you have questions, please contact your health care provider. Indication: Left LE pain Technique: Real-time longitudinal and transverse sonographic sharp-scale imaging with and without compression, as well as color, duplex, and spectral Doppler imaging before and after augmentation, was obtained of the deep system of the left lower extremity, including the common femoral, femoral, popliteal, posterior tibial, and peroneal veins. Comparison: None. Findings: Common femoral vein: No evidence of thrombus. Femoral vein: No evidence of thrombus. Popliteal vein: No evidence of thrombus. Calf veins: Patent. Impression: No ultrasound evidence of deep venous thrombosis. Dictated by Elder Ott MD @ 05/24/2025 8:28:26 PM (Electronically Signed)
--- NOTE | 2025-05-24 19:06 | ED.SYNCOPE ---
HPI - Syncope General Chief Complaint: Syncope/Fainted Stated Complaint: possible heart attack Time Seen by Provider: 05/24/25 18:50 History of Present Illness HPI narrative: This 59-year-old female comes in reporting repeated episodes of lightheadedness with syncope over the past week or so. She states that these seem to happen randomly and is not related to any particular position or activity. She states that she feels lightheaded and then numerous times, perhaps 8 or 9 times over the past week or so, she has lost consciousness briefly. She arrived here with the systolic blood pressure at 74 but after getting placed in the room her blood pressure rebounded to 150-160. Currently she feels normal. She does not report any chest pain, shortness of breath, diaphoresis, or exercise intolerance. She does state that she has a left knee that has osteoarthritis and is causing pain. However the pain is seemed to worsen and is now down in her calf and sometimes extends up into her left upper leg. She was on vacation about a month ago and did have a prolonged ride in transport to and from. She is not on any new medications. Related Data Home Medications ?Medication ?Instructions ?Recorded ?Confirmed albuterol sulfate 90 mcg/actuation 2 inhalation PRN 04/27/22 10/05/24 aerosol inhaler cholecalciferol (vitamin D3) 50 2,000 unit PO DAILY 04/27/22 10/05/24 mcg (2,000 unit) capsule cyclosporine 0.05 % eye drops 1 drp ophthalmic (eye) BID 04/27/22 10/05/24 diclofenac sodium 1 % topical gel 2-4 topical QID 04/27/22 10/05/24 evening primrose oil 500 mg capsule 500 mg PO DAILY 04/27/22 10/05/24 fluticasone 250 mcg-salmeterol 50 1 inhalation BID 04/27/22 10/05/24 mcg/dose blistr powdr for inhalation montelukast 10 mg tablet 10 mg PO .Bedtime 04/27/22 10/05/24 multivitamin 1 tab PO QAM 04/27/22 10/05/24 omega-3 fatty acids 1,000 mg 1,000 mg PO QDAY 04/27/22 10/05/24 capsule aspirin 81 mg tablet,delayed 81 mg PO QDAY 04/30/22 10/05/24 release blood-glucose meter (Accu-Chek #1 ea 04/30/22 04/30/22 Guide Glucose Meter) metformin 500 mg tablet,extended 1,500 mg PO QDAY 04/30/22 10/05/24 release 24 hr rosuvastatin 20 mg tablet 20 mg PO QDAY 04/30/22 10/05/24 celecoxib 200 mg capsule 200 mg PO BID 10/05/24 10/05/24 fluticasone propionate 50 2 spray intranasal DAILY 10/05/24 10/05/24 mcg/actuation nasal spray,suspension gabapentin 300 mg capsule See Rx Instructions PO .COMPLEX 10/05/24 10/05/24 tirzepatide 12.5 mg/0.5 mL 12.5 mg subcut 10/05/24 10/05/24 subcutaneous pen injector (Qi) Previous Rx's ?Medication ?Instructions ?Recorded amoxicillin 500 mg capsule 2,000 mg (4 x 500 mg) PO ONCE #4 01/23/24 caps Allergies Allergy/AdvReac Type Severity Reaction Status Date / Time No Known Allergies Allergy Unverified 10/05/24 09:40 Review of Systems Status of ROS: Reports: 10 or more systems reviewed and unremarkable except as noted in History and below Narrative: Constitutional: No fevers, no weight gain or loss. Eyes: No discharge. No vision changes. HENT: No congestion, no sore throat, no ear pain. Cardiovascular: No chest pain, no palpitations. Respiratory: No shortness of breath, no wheezes, no cough. Gastrointestinal: No abdominal pain, no vomiting, no diarrhea. Genitourinary: No dysuria, no hematuria. Musculoskeletal: Normal range of motion. Skin: No rashes, no pruritis. Neurological: No weakness, sensory change, speech change. Lightheadedness episodes with syncope as described above. Endo/Heme/Allergies: No bruising or bleeding. No polydipsia. Pysch: no suicidality, no anxiety, no insomnia. All other systems reviewed and are negative. [facility] Surgical History (Updated 10/05/24 @ 09:48 by Janelle Toscano) Status post arthroscopic partial medial meniscectomy of left knee (07/30/19) ?Z98.890 - Other specified postprocedural states (ICD-10) ?Z87.828 - Personal history of other (healed) physical injury and trauma (ICD-10) H/O tubal ligation (04/27/09) ?Z98.51 - Tubal ligation status (ICD-10) H/O sinus surgery (04/27/09) ?Z98.890 - Other specified postprocedural states (ICD-10) History of 2 sections (04/27/09) ?Z98.891 - History of uterine scar from previous surgery (ICD-10) S/P arthroscopy of right shoulder (09/21/21) ?Z98.890 - Other specified postprocedural states (ICD-10) History of arthroscopy of right knee ?Z98.890 - Other specified postprocedural states (ICD-10) 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 HEENT: Normocephalic, atraumatic. Neck: Normal range of motion. Nontender. Supple. Heart: Regular. No murmurs. Normal rate. Intact distal pulses. Lungs: Clear to auscultation. No chest discomfort. No wheezes, rhonchi, or rales. Abdomen: Normal bowel sounds. Nontender. No rebound tenderness. Genitalia: Deferred. Back: No midline tenderness. Normal range of motion. Extremities: Normal range of motion. No injury. Skin: Intact. No rash. Warm. No erythema or pallor. Neurologic: No altered sensation. No weakness. Alert and oriented. Psychiatric: No suicidality. No anxiety or depression. No insomnia. Nursing notes and vitals signs are reviewed. Const: Vital Signs, click to edit/add: Vital Signs - 24 hr 05/24/25 18:24 Temperature 97.8 F Pulse Rate [Pulse Oximeter] 77 Respiratory Rate 18 Blood Pressure [Ri ght Upper Arm] 74/45 L Pulse Oximetry 96 Oxygen Delivery Me thod Room Air Course Vital Signs Vital signs: Initial Vital Signs Temperature 97.8 F 05/24/25 18:24 Temperature Source Temporal Artery Scan 05/24/25 18:24 Pulse Rate 77 05/24/25 18:24 Respiratory Rate 18 05/24/25 18:24 Blood Pressure 74/45 L 05/24/25 18:24 Blood Pressure Mean 54 L 05/24/25 18:24 Blood Pressure Position Sitting 05/24/25 18:24 Pulse Oximetry 96 05/24/25 18:24 Oxygen Delivery Method Room Air 05/24/25 18:24 Vital Signs Temperature 97.8 F 05/24/25 18:24 Pulse Rate 77 05/24/25 18:24 Respiratory Rate 18 05/24/25 18:24 Blood Pressure 74/45 L 05/24/25 18:24 Pulse Oximetry 96 05/24/25 18:24 Oxygen Delivery Method Room Air 05/24/25 18:24 Temperature 97.8 F 05/24/25 18:24 Pulse Rate 77 05/24/25 18:24 Respiratory Rate 18 05/24/25 18:24 Blood Pressure 74/45 L 05/24/25 18:24 Pulse Oximetry 96 05/24/25 18:24 Oxygen Delivery Method Room Air 05/24/25 18:24 MDM - Syncope MDM Narrative Medical decision making narrative: This patient comes in because of episodes of lightheadedness and syncope as described above. She was feeling some lightheadedness when she initially arrived but did not have syncope. Throughout her stay here she has had normal blood pressure and heart activity without any recurrent symptoms. She was complaining of some pain in her left leg so an ultrasound of the left lower extremity is obtained and shows no sign of deep venous thrombosis. Labs are acquired also and these also returned with normal findings. In particular her troponin and D-dimer are normal. EKG also shows normal sinus rhythm. Her symptoms seem more likely to be happening because of abnormal cardiac rhythm that is transient. The patient was fitted for a Zio patch and does have a follow-up appointment with a side door man in a few days. She is okay to be discharged home. I did describe signs and symptoms that would indicate need for return re-evaluation. Lab Data Labs: Lab Results 05/24/25 Range/Units 18:44 WBC 6.95 (4.50-11.00) K/uL RBC 3.97 L (4.00-5.20) m/uL Hgb 12.6 (12.0-16.0) gm/dL Hct 38.3 (33.0-51.0) % MCV 97 (80-100) fL MCH 32 (26-34) pg MCHC 33 (32-36) gm/dL RDW Coeff of Noelle 12.0 (11.5-15.5) % Plt Count 253 (140-440) K/uL Neut % (Auto) 61.3 (42.0-72.0) % Lymph % (Auto) 25.5 (20-44) % Hanson % (Auto) 8.1 (0.0-11.0) % Eos % (Auto) 4.3 (0.0-7.0) % Baso % (Auto) 0.7 (0.0-3.0) % Neut # (Auto) 4.26 (1.7-7.0) K/uL Lymph # (Auto) 1.77 (0.90-2.90) K/uL Hanson # (Auto) 0.60 (0.00-0.90) K/UL Eos # (Auto) 0.30 (0.00-0.50) K/uL Baso # (Auto) 0.05 (0.00-0.30) K/uL Abs Immat Gran (auto) 0.01 (0.00-0.30) K/uL Imm/Tot Granulo (auto) 0.1 % D-Dimer Quant (PE/DVT) < 0.27 (0.00-0.50) ug/ml Sodium 136 (135-149) mmol/L Potassium 4.0 (3.6-5.1) mmol/L Chloride 106 (96-114) mmol/L Carbon Dioxide 25 (20-32) mmol/L Anion Gap 5 L (7-15) mEq/L BUN 16 (7-30) mg/dL Creatinine 0.7 (0.5-1.5) mg/dL Estimated Creat Clear 73.80 Estimated GFR 99 ml/min Glucose 89 (60-115) mg/dL Calcium 9.5 (8.4-10.6) mg/dL POC Troponin I 0.00 L (0.01-0.04) ng/ml ECG Data Attestation: I personally reviewed and interpreted this ECG as follows: Interpretation: Normal sinus rhythm with 1st degree AV block. Rate is 80 beats per minute. There are no specific ST or T-wave abnormalities. Discharge Plan Discharge Clinical Impression: Syncope Patient Disposition: Home w/ Parent or Adult Condition: Improved Additional Instructions: Where Zio patch in follow-up with cardiology appointment as scheduled. Return if symptoms are recurrent or worsening. Prescriptions: No Action celecoxib 200 mg capsule 200 mg PO BID Patient Comments: [NO ORIGINAL SIG] gabapentin 300 mg capsule See Rx Instructions PO .COMPLEX Patient Comments: TAKE 1 CAPSULE BY MOUTH EVERY AM AND 2 CAPSULES AT BEDTIME Rx Instructions: orally; Mounjaro 12.5 mg/0.5 mL pen injector 12.5 mg subcut fluticasone propionate 50 mcg/actuation spray,suspension 2 spray intranasal DAILY albuterol sulfate 90 mcg/actuation HFA aerosol inhaler 2 inhalation PRN multivitamin Tablet 1 tab PO QAM evening primrose oil 500 mg capsule 500 mg PO DAILY Rx Instructions: give with meal/snack omega-3 fatty acids 1,000 mg capsule 1,000 mg PO QDAY fluticasone propion-salmeterol 250-50 mcg/dose blister with device 1 inhalation BID cyclosporine 0.05 % drops 1 drp ophthalmic (eye) BID cholecalciferol (vitamin D3) 50 mcg (2,000 unit) capsule 2,000 unit PO DAILY montelukast 10 mg tablet 10 mg PO .Bedtime diclofenac sodium 1 % gel 2-4 topical QID metformin 500 mg tablet extended release 24 hr 1,500 mg PO QDAY aspirin 81 mg tablet,delayed release (DR/EC) 81 mg PO QDAY rosuvastatin 20 mg tablet 20 mg PO QDAY (DME) blood-glucose meter [Accu-Chek Guide Glucose Meter] Misc See Rx Instructions .ROUTE .MEDSUPPLY Qty: 1 Rx Instructions: As directed amoxicillin 500 mg capsule 2,000 mg PO ONCE Qty: 4 3RF Rx Instructions: Take all 4 capsules, 1 hour prior to dental appointment Follow Up/Referrals: Monica Naranjo MD [Primary Care Provider, Family Practice] Stand Alone Forms: [employer] Info Instructions
--- OUTSIDE RECORDS SUMMARY | 2025-05-24 19:11 | XMS_ITS | CCD ---
Author Name Interface, [id number] lity Address [address] [place] [address] Oncology Address [address] [place] [id number] Reason for Visit Social History Date Name Value 05/08/2025 Sex Female
--- OUTSIDE RECORDS SUMMARY | 2025-05-24 19:11 | XMS_ITS | CCD ---
Author Name Interface, [id number] lity Address [address] [place] [address] Oncology Address [address] [place] [id number] Reason for Visit Social History Date Name Value 05/08/2025 Sex Female
[2025-05-24 19:15] LABS: Hematocrit* 38.3 % (33.0-51.0); Hemoglobin* 12.6 gm/dL (12.0-16.0); Immature Granulocytes Abs Auto 0.01 K/uL (0.00-0.30); Immature Granulocytes Pct Auto 0.1 %; Lymphocytes Absolute Auto 1.77 K/uL (0.90-2.90); Mean Corpuscular HGB Conc 33 gm/dL (32-36); Mean Corpuscular Hemoglobin 32 pg (26-34); Mean Corpuscular Volume 97 fL (80-100); RDW Coefficient of Variation % 12.0 % (11.5-15.5); Red Blood Count* 3.97 m/uL (4.00-5.20); White Blood Count* 6.95 K/uL (4.50-11.00)
[2025-05-24 19:18] LABS: Slide Review Reflex No
[2025-05-24 19:29] LABS: Chloride* 106 mmol/L (96-114); Sodium* 136 mmol/L (135-149)
[2025-05-24 19:30] LABS: Potassium* 4.0 mmol/L (3.6-5.1)
[2025-05-24 19:32] LABS: Blood Urea Nitrogen* 16 mg/dL (7-30); Creatinine* 0.7 mg/dL (0.5-1.5); Est. Creatinine Clearance* 73.80; Estimated Glomerular Filt Rate 99 ml/min
[2025-05-24 19:33] LABS: Anion Gap 5 mEq/L (7-15); Calcium* 9.5 mg/dL (8.4-10.6); Carbon Dioxide* 25 mmol/L (20-32); Glucose* 89 mg/dL (60-115)
[2025-05-24 19:42] LABS: D Dimer Quantitative* < 0.27 ug/ml (0.00-0.50)
== END 2025-05-24 20:50 | disposition home or self-care (01) ==
PROVIDERS: Emergency Provider Emergency Medicine Emergency Medical Services; PCP Family Medicine
DX: R55 Syncope and collapse (principal)
CPT/HCPCS: 36415; 80048; 84484; 85025; 85379; 93005; 93246; 93971; 99284